=== PATIENT | female | born 1965 | race Caucasian/White ===

== ENCOUNTER 2020-02-11 15:47 | Emergency (ER) | payer MEDICARE, MEDICAID ==
[~2020-02-11] VITALS: Ht 160 cm; Wt 122.7 kg
[2020-02-11] MEDS ORDERED: ketorolac trometh inj. 60 MG/2 ML VIAL IM ONE (16:20)
[2020-02-11] MEDS ORDERED: ketorolac trometh. 30mg/ml inj. IM ONE (16:20)
[2020-02-11 17:03] VITALS: BP 131/87
== END 2020-02-11 16:55 | disposition home or self-care (01) ==
LOC: ER 15:47
DX: G89.29 Other chronic pain (principal); M54.5 Low back pain; M54.32 Sciatica, left side; F31.9 Bipolar disorder, unspecified; Z88.2 Allergy status to sulfonamides
CPT/HCPCS: 96372; 99283; J1885

== ENCOUNTER 2020-11-12 16:04 | Emergency (ER) | payer MEDICARE, MEDICAID ==
[~2020-11-12] VITALS: Ht 160 cm; Wt 123.0 kg
[2020-11-12 16:27] VITALS: BP 134/74
== END 2020-11-12 18:18 | disposition home or self-care (01) ==
LOC: ER 16:04
DX: S83.91XA Sprain of unspecified site of right knee, initial encounter (principal); M19.90 Unspecified osteoarthritis, unspecified site; M79.7 Fibromyalgia; G89.29 Other chronic pain; Z88.2 Allergy status to sulfonamides; Z88.7 Allergy status to serum and vaccine; Z88.8 Allergy status to other drugs, medicaments and biological substances; X50.1XXA Overexertion from prolonged static or awkward postures, initial encounter; Y93.89 Activity, other specified; Y92.89 Other specified places as the place of occurrence of the external cause; Y99.8 Other external cause status
CPT/HCPCS: 73564; 99283

== ENCOUNTER 2020-12-04 08:40 | Outpatient (CLI) | payer MEDICARE, MEDICAID | END 2020-12-04 23:59 | disposition home or self-care (01) | LOC: RAD 08:40 | DX: S83.281A Other tear of lateral meniscus, current injury, right knee, initial encounter (principal); M25.461 Effusion, right knee; X58.XXXA Exposure to other specified factors, initial encounter; Y93.89 Activity, other specified; Y92.89 Other specified places as the place of occurrence of the external cause; Y99.8 Other external cause status | CPT/HCPCS: 73721 ==

== ENCOUNTER 2020-12-12 08:39 | Outpatient (CLI) | payer MEDICARE, MEDICAID | END 2020-12-12 23:59 | disposition home or self-care (01) | LOC: VAS 08:39 | DX: M25.561 Pain in right knee (principal); M71.21 Synovial cyst of popliteal space [Baker], right knee | CPT/HCPCS: 93971 ==